=== PATIENT | female | born 1965 | race Caucasian/White ===

== ENCOUNTER 2021-01-15 09:56 | Outpatient (RCR) | payer BC, SELFPAY ==
--- NOTE | 2021-01-15 11:02 | PTOPEVAL ---
Thank you for referring Keena Fournier to [facility].? The patient is scheduled to be seen for therapy? __2__x/week for 12 visits. Please review, sign, date and return this plan of care LANCE. I agree with and certify that the following plan of care is medically necessary. Referring Physician Date Admitting Provider: Attending Provider: Malik Slade Referring Provider: *PT Outpatient Evaluation Start: 01/15/21 10:10 Freq: Status: Active Protocol: Document 01/15/21 10:11 SKINNY (Rec: 01/15/21 11:01 [email or web address]) Therapy Assessment Status Assessment Status Assessment Status Evaluation Evaluation Information Problem Diagnosis right shoulder biceps tenodesis, debridement Onset 01/12/21 Subjective Information Pt. reports she underwent Query Text:As Reported By Patient/ shoulder surgery on 01/12/21. Family She states that pain has been severe since [facility]. She reports difficulty sleeping at night due to pain. She reports that her goal for therapy is to regain normal shoulder moblity. Prior Level of Function Activity Level (Last 3 Months) Occupation no working Hand Dominance Right Activity of Daily Living Ability Independent Indoor/Home Mobility Independent Community Mobility Independent Stairs Ability Independent Functional Cognition (Planning, Shopping Independent , Taking Medications) Cooking Yes Cleaning Yes Laundry Yes Shopping Yes Driving Yes Pain Assessment Pain Scale Pain Scale Used Numeric (1 - 10) Self Report Pain Assessment Right Shoulder(s) Reported Pain Level 10 Pain Description Aching Pain Score Pain Score 10: Self Report Interventions Used Interventions Used By Clinicians Electrical Stimulation, Exercise,Ice Upper Extremity Range of Motion General Upper Extremity Range of Motion Gross Upper Extremity Range of Motion -PROM right shoulder flexion Comments 90 degrees -PROM right shoulder abduction 45 degrees -PROM right elbow 0-135 degrees Palpation Assessment Palpation Palpation Pt. surgical sight appears normal with no indication of inf
--- NOTE | 2021-02-20 17:08 | PCPTNOTE ---
Mrs. Fournier is currently 5-6 weeks post op biceps tenodesis and debridement. She currently presents with 152 degrees of active shoulder flexion, 85 degrees of active shoulder ER and 75 degrees of active shoulder IR on the right. Passively pt. achieves 165 degrees of flexion, 90 degrees ER and 80 degrees of IR at the right shoulder. Strength remains at 3+/5 at this time. Pt. has progressed well in regards to strength and ROM, however continues to be limited due to pain reports. Her current program has focused on AAROM, PROM, AROM and variable isometric techniques. Pt. resistance has not been progressed in recent visits due to continued subjective reports of pain. We will continue to advance pt. per protcol. Thank you for the referral of this pt. and please contact me if there are any questions regarding the pt. rehab. Ayad Smith, MPT
--- NOTE | 2021-02-28 06:48 | PTOPEVAL ---
Thank you for referring Keena Fournier to [facility].? The patient is scheduled to be seen for therapy? __2__x/week for 8 visits. Please review, sign, date and return this plan of care LANCE. I agree with and certify that the following plan of care is medically necessary. Referring Physician Date Admitting Provider: Attending Provider: Malik Slade Referring Provider: *PT Outpatient Evaluation Start: 01/15/21 10:10 Freq: Status: Active Protocol: Document 02/23/21 13:30 SKINNY (Rec: 02/28/21 06:47 [email or web address]) Therapy Assessment Status Assessment Status Assessment Status Progress Evaluation Information Problem Diagnosis right shoulder biceps tenodesis, debridment Onset 01/12/21 Subjective Information Pt. reports that her arm is Query Text:As Reported By Patient/ moving better. She states Family that pain remains intense. She has avoided any strenuous activity with the right arm. She states that she still notes most difficulty with activities requiring her to reach overhead. She states that she would like to continue with therapy in order to improve her strength. Pain Assessment Timing of Pain Assessment Timing of Pain Assessment Pre-Treatment Pain Scale Pain Scale Used Numeric (1 - 10) Self Report Pain Assessment Right Shoulder(s) Reported Pain Level 7 Pain Description Aching Lowest Pain Intensity 5 Greatest Pain Intensity 9 Pain Score Pain Score 7: Self Report Interventions Used Interventions Used By Clinicians Electrical Stimulation, Exercise,Heat Upper Extremity Range of Motion General Upper Extremity Range of Motion Gross Upper Extremity Range of Motion -right shoulder flexion AROM Comments 155 degrees -right shoulder ER AROM 85 degrees -right shoulder IR AROM 74 degrees Pt. is painful and guarded with active shoulder movement against gravity. Upper Extremity Muscle Strength Testing General Upper Extremity Strength Gross Upper Extremity Strength Comments -right shoulder flexion 3+/5 -right shoulder ER 3+/5 -right shoulder IR 3+/5 -right shoulder abduction 3+/5
--- NOTE | 2021-03-09 16:41 | PCPTNOTE ---
On 03/09/21, the student, [Yuliya Moses, SPT], provided care and completed [employer] documentation on this patient. I have reviewed the student's documentation and agree with the findings.
--- NOTE | 2021-03-21 14:12 | PCPTNOTE ---
On 03/21/21, the student, [Yuliya Moses, SPT], provided care and completed [employer] documentation on this patient. I have reviewed the student's documentation and agree with the findings.
--- NOTE | 2021-04-09 13:44 | PTOPEVAL ---
Thank you for referring Keena Fournier to [facility].? The patient is scheduled to be seen for therapy? __2__x/week for 8 visits. Please review, sign, date and return this plan of care LANCE. I agree with and certify that the following plan of care is medically necessary. Referring Physician Date Admitting Provider: Attending Provider: Malik Slade Referring Provider: *PT Outpatient Evaluation Start: 01/15/21 10:10 Freq: Status: Active Protocol: Document 04/09/21 13:08 SKINNY (Rec: 04/09/21 13:43 [email or web address]) Therapy Assessment Status Assessment Status Assessment Status Re-evaluation Evaluation Information Problem Diagnosis right shoulder biceps tenodesis, debridment Onset 01/12/21 Subjective Information Pt. reports that she still Query Text:As Reported By Patient/ experiences pain. She states Family that she has had 3 injections since we last seen her, and states that relief has been minimal. She reports that she still has pain with most activities and notes lots of grinding and popping into the right shoulder. She reports that she even has increased pain with using her ipad to touch the screen. She reports that she is woke from sleep on occassion. She reports that she discussed shoulder replacement, but doctor felt it would not be affective due to no relief with the injection. she reports that her goal for therapy is to decrease her pain with regular activities. Pain Assessment Timing of Pain Assessment Timing of Pain Assessment Pre-Treatment Pain Scale Pain Scale Used Numeric (1 - 10) Self Report Pain Assessment Right Shoulder(s) Reported Pain Level 3 Lowest Pain Intensity 3 Greatest Pain Intensity 8 Pain Aggravating Factors ADL's,Exercise/Activity, Lifting Pain Score Pain Score 3: Self Report Interventions Used Interventions Used By Clinicians Exercise,Manual Therapy Techniques Upper Extremity Range of Motion General Upper Extremity Range of Motion Gross Upper Extremity Range of Motion -right shoulder flexion AROM Comments
== END 2021-04-23 16:18 | disposition still patient (30) ==
LOC: CHSPT 09:56
PROVIDERS: PCP Internal Medicine
DX: Z98.890 Other specified postprocedural states (principal)
CPT/HCPCS: 97014; 97110; 97140; 97161; G0283

== ENCOUNTER 2021-04-27 15:01 | Outpatient (RCR) | payer BC, SELFPAY | END 2021-04-27 18:00 | disposition home or self-care (01) | LOC: CHSPT 15:01 | PROVIDERS: PCP Internal Medicine | DX: Z98.890 Other specified postprocedural states (principal) | CPT/HCPCS: 97014; 97110; G0283 ==

== ENCOUNTER 2021-09-17 13:55 | Outpatient (RCR) | payer BC, SELFPAY ==
--- NOTE | 2021-09-17 15:19 | PTOPEVAL ---
Thank you for referring Keena Fournier to [facility].? The patient is scheduled to be seen for therapy? __2__x/week for 12 visits. Please review, sign, date and return this plan of care LANCE. I agree with and certify that the following plan of care is medically necessary. Referring Physician Date Admitting Provider: Attending Provider: Raoul Ledesma, PA Referring Provider: *PT Outpatient Evaluation Start: 09/17/21 14:01 Freq: Status: Active Protocol: Document 09/17/21 14:01 SKINNY (Rec: 09/17/21 15:18 [email or web address]) Therapy Assessment Status Assessment Status Assessment Status Evaluation Evaluation Information Problem Diagnosis right reverse total shoulder replacement Onset 08/01/21 Subjective Information Pt. reports that she underwent Query Text:As Reported By Patient/ surgery on 08/01/21. She Family reports she has been using a sling with the exception of at night. She reports she was told to continue her sling for 2 more weeks. she reports that pain is currently 8/10 at rest. She reports her pain levels remain consistents. She reports that she is taking pain medication about every 8 hours. she states that only exercise she has done is moving the hand, wrist and elbow. She reports that her goal is to use her right arm to fix her hair and reach overhead. Pain Assessment Timing of Pain Assessment Timing of Pain Assessment Pre-Treatment Pain Scale Pain Scale Used Numeric (1 - 10) Self Report Pain Assessment Right Shoulder(s) Reported Pain Level 8 Pain Aggravating Factors Exercise/Activity Pain Score Pain Score 8: Self Report Interventions Used Interventions Used By Clinicians Activity or ADL's,Exercise, Heat Upper Extremity Range of Motion Scapular/ Shoulder Range of Motion Right Shoulder Flexion - Passive 121 Shoulder Medial Rotation - Passive 20 Shoulder Lateral Rotation - Passive 62 Upper Extremity Muscle Strength Testing Scapular/Shoulder Right Scapular Retraction - Rhomboid 3- Fair - Scapular Retraction - Middle Trapezius 3- Fair - Shoulder Flexion Strength 3- Fair - Shoulder Abduction Strength 3- Fair - Shoulder Medial Rotation Strength 3 Fair Shoulder Lateral Rotation Str
--- NOTE | 2021-10-22 15:14 | PTOPEVAL ---
Thank you for referring Keena Fournier to [facility] [place].? The patient is scheduled to be seen for therapy? __2__x/week for 6 visits. Please review, sign, date and return this plan of care LANCE. I agree with and certify that the following plan of care is medically necessary. Referring Physician Date Admitting Provider: Attending Provider: Raoul Ledesma, PA Referring Provider: *PT Outpatient Evaluation Start: 09/17/21 14:01 Freq: Status: Active Protocol: Document 10/22/21 14:31 SKINNY (Rec: 10/22/21 15:12 [email or web address]) Therapy Assessment Status Assessment Status Assessment Status Progress Evaluation Information Problem Subjective Information Pt. reports that reaching down Query Text:As Reported By Patient/ to shave her legs is still Family difficult, as well as reaching overhead. She reports that things are getting better in regards to mobility, but pain is still present. She reports still being discouraged due to constant pain. Pain Assessment Timing of Pain Assessment Timing of Pain Assessment Pre-Treatment Pain Scale Pain Scale Used Numeric (1 - 10) Self Report Pain Assessment Right Shoulder(s) Reported Pain Level 5 Pain Score Pain Score 5: Self Report Interventions Used Interventions Used By Clinicians Activity or ADL's,Electrical Stimulation,Exercise,Heat Upper Extremity Range of Motion General Upper Extremity Range of Motion Gross Upper Extremity Range of Motion - Comments Scapular/ Shoulder Range of Motion Right Shoulder Flexion - Active 126 Shoulder Flexion - Passive 140 Shoulder Medial Rotation - Active Unable to accurately test IR Query Text:Reach Behind the Back passive movement due to pt. demonstrating muscular resistance despite cuing. She reaches the area of the right PSIS with the right u.e. Shoulder Lateral Rotation - Passive 85 Shoulder Lateral Rotation - Active Pt. reaches the area of the CT Query Text:Reach Behind the Head junction with the right u.e. Upper Extremity Muscle Strength Testing General Upper Extremity Strength Gross Upper Extremity Strength Comments -right shoulder flexion 3+/5 -right shoulder ER 3+/5 -right shoulder IR 3+/5 Pt. is able to hold the arm at 130 degrees of shoulder flexion against gravity when assisted into position. Note
== END 2021-11-22 18:00 | disposition home or self-care (01) ==
LOC: CHSPT 13:55
PROVIDERS: Visit Provider Physician Assistant
DX: Z47.1 Aftercare following joint replacement surgery (principal); Z96.611 Presence of right artificial shoulder joint
CPT/HCPCS: 97014; 97110; 97140; 97161; G0283

== ENCOUNTER 2023-10-03 15:44 | Outpatient (CLI) | payer BC, SELFPAY ==
--- NOTE | ~2023-10-03 | XR_ITS ---
EXAMINATION: XR shoulder LT min 2V DATE: 10/03/2023 16:01 INDICATION: One and a half weeks of anterior and lateral left shoulder pain TECHNIQUE: AP internally and externally rotated, AP oblique externally rotated and transscapular Y vi ews of the left shoulder were obtained. COMPARISON: None FINDINGS: Normal alignment. No fracture. Glenohumeral joint is normal. Moderate osteoarthritis at the left acr omioclavicular joint with small inferiorly directed osteophytes. Small lucency with thin sclerotic ma rgins along the floor of the cephalad aspect of the intertubercular groove which could be either dege nerative in etiology or potentially anchor site for a bicipital tenodesis. Soft tissues are unremarka ble. There are few calcified perihilar nodules consistent with old granulomatous disease. Visualized portion of the lungs are otherwise clear. IMPRESSION: Moderate left acromioclavicular osteoarthritis. Reviewed, dictated and finalized at location A. [employer]
== END 2023-10-03 15:45 | disposition home or self-care (01) ==
PROVIDERS: PCP Internal Medicine; Visit Provider Internal Medicine
DX: M25.512 Pain in left shoulder (principal); M19.012 Primary osteoarthritis, left shoulder
CPT/HCPCS: 73030

== ENCOUNTER 2025-09-09 11:24 | Outpatient (CLI) | payer BC, SELFPAY ==
--- NOTE | ~2025-09-09 | XR_ITS ---
EXAMINATION: XR lumbar spine 2-3V, XR hip RT min 2V DATE: 09/09/2025 11:51 INDICATION: Chronic worsening right hip pain radiating to the knee TECHNIQUE: 1. Anteroposterior and lateral views of the lumbar spine, and cone-down lateral view of the lumbosacral junction were obtained. 2. AP and frog-leg lateral views of the right hip were obtained. COMPARISON: Lumbar spine radiographs dated 08/24/2007 FINDINGS: Lumbar spine: 9 degrees lumbar levocurvature. Sagittal alignment is normal. L4-L5 and L5-S1 anterior spinal fusion procedures with anterior plate and screw fixations. Vertebral body heights are normal. Mild right-sided disc height loss at L1-L2 and L2-L3 diffuse mild disc height loss at T12-L1. Moderate lower lumbar facet osteoarthritis. Mild osteoarthritis at the bilateral sacroiliac joints. Chronic sclerotic bone island at the right ilium. Right hip: Normal alignment. No fracture or suspected osteonecrosis. Minimal right hip osteoarthritis with relatively preserved joint space but tiny marginal osteophytes about the femoral head. Soft tissues are unremarkable. IMPRESSION: 1. 9 degrees lumbar levocurvature with mild spondylosis. 2. Minimal right hip osteoarthritis. Reviewed, dictated and finalized at location A. TROLLER IMPRESSION: 1. 9 degrees lumbar levocurvature with mild spondylosis. 2. Minimal right hip osteoarthritis.
--- OUTSIDE RECORDS SUMMARY | 2025-09-09 12:04 | XMS_ITS | Clinical Summary ---
Author Organization [facility] al Address [address] [place] [address] Care Team Providers [employer] Name Role Phone Mikhail Meza MD Primary Care Provider [phone] Raoul Ledesma Unavailable [phone] Allergies Active Allergy Reactions Criticality Noted Date Comments Codeine Fever,Rash Medium 01/03/2020 Reaction: Fever, Medications calcium carbonate (CALCIUM 500) 1,250 MG (500 mg of elemental calcium) tablet 0 0 6 Active docusate sodium (COLACE) 100 mg capsule TAKE 1 CAPSULE BY MOUTH TWICE DAILY NEEDED 0 Active montelukast (SINGULAIR) 10 mg tablet Take 1 tablet (10 mg total) by mouth daily 1 Active fluticasone propion-salmete roL (ADVAIR DISKUS) 250-50 mcg/dose diskus inhaler Inhale 1 puff 2 (two) times a day 5 Active oxyCODONE (ROXICODONE) 5 mg immediate release tabletIndicatio ns:Pain Take 1 tablet (5 mg total) by mouth every 4 (four) hours as needed for pain 20 tablet 5 Active oxyCODONE (ROXICODONE) 5 mg immediate release tabletIndicatio ns:Pain Take 1 tablet (5 mg total) by mouth every 4 (four) hours as needed for pain 10 tablet 5 Active naloxone (NARCAN) 4 mg/actuation spray,non-aeros ol Administer 1 spray into affected nostril(s) as needed for opioid reversal or respiratory depression Call 911. Administer a single spray in one nostril. Repeat every 3 minutes as needed if no or minimal response. 1 each 5 Active traMADoL (ULTRAM) 50 mg tabletIndicatio ns:Left wrist pain Take 1 tablet every 4-6 hours as needed for pain. 20 tablet 5 Active Active Problems Problem Noted Date Diagnosed Date Primary osteoarthritis of fi rst carpometacarpal joint of left hand 06/13/2025 Rotator cuff arthropathy of right shoulder 06/28 Asthma 05/23/2020 Headache 05/23/2020 History of surgery on left wrist 07/29/2019 Pain of upper extremity 09/29/2017 Bone neoplasm 02/13/2017 Mass of breast 09/23/2016 Overview (02/06/2017): Breast lump Endometrial polyp 07/11/2016 Overview (05/23/2020): 12/2014- removed with hysteroscopy D&C Ovarian cyst 07/11/2016 Overview (05/23/2020): Last U/S check was in 10/2014, 0.9cm anechoic cyst Low back pain 02/21/2010 Encounters Date Type Department Care Team Description 09/06/2025 10:00 AM 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 [facility] [address] [place] [phone] Nesha Ulloa, PT Primary osteoarthritis of first carpometacarpal joint of left hand (Primary Dx) 08/25/2025 11:15 AM CDT [facility] [address] [place] [phone] Nesha Ulloa, PT Primary osteoarthritis of first carpometacarpal joint of left hand (Primary Dx) 08/25/2025 10:00 AM CDT Office Visit [facility] Hand Surgery [address] [place] [phone] Patria Venegas MD Osteoarthritis of carpometacarpal (CMC) joint of left thumb, unspecified osteoarthritis type (Primary Dx) 08/12/2025 Orders Only [facility] Hand Surgery [address] [place] [phone] Patria Venegas MD Left wrist pain 08/09/2025 8:45 AM CDT Therapy [facility] Should[facility] [address] [place] [phone] Nesha Ulloa, PT Primary osteoarthritis of first carpometacarpal joint of left hand (Primary Dx) 08/04/2025 Telephone [facility] Hand Surgery [address] [place] [phone] Patria Venegas MD 07/28/2025 10:45 AM CDT Therapy [facility] [address] [place] [phone] Nesha Ulloa, PT Primary osteoarthritis of first carpometacarpal joint of left hand (Primary Dx) 07/28/2025 10:15 AM CDT Office Visit [facility] Hand Surgery [address] [place] [phone] Patria Venegas MD Left wrist pain (Primary Dx) 07/28/2025 Plan of Care Documentation [facility] [address] [place] [phone] 07/21/2025 Orders Only [facility] Hand Surgery [address] [place] [phone] Patria Venegas MD Primary osteoarthritis of first carpometacarpal joint of left hand 07/21/2025 Telephone [facility] Surgery [address] [place] [phone] Patria Venegas MD refill 07/15/2025 Orders Only [facility] [address] [place] [phone] Ginny Patel PA 07/15/2025 Telephone [facility] [address] [place] [phone] Patria Venegas MD 07/14/2025 Telephone [facility] [address] [place] [phone] Patria Venegas MD 07/13/2025 8:20 AM CDT - 07/13/2025 10:40 AM CDT Surgery [facility] OR [address] [place] [phone] Patria Venegas MD LEFT TRAPEZIECTOMY WITH LIGAMENT RECONSTRUCTION AND TENDON INTERPOSITION 07/13/2025 8:17 AM CDT Anesthesia Event [facility] OR [address] [place] [phone] Turner Wilson MD Taylor-White, Carlotta A., NP 07/13/2025 7:30 AM CDT Ancillary Procedure [facility] OR [address] [place] [phone] 07/13/2025 5:46 AM CDT - 07/13/2025 11:37 AM CDT Hospital Encounter [facility] OR [address] [place] [phone] Patria Venegas MD Primary osteoarthritis of first carpometacarpal joint of left hand (Primary Dx) Discharge Disposition: Discharge to home or self care 06/13/2025 10:45 AM CDT Office Visit [facility] Medical [facility] Hand Surgery [address] [place] [address] [address] [place] [phone] Patria Venegas MD Left wrist pain (Primary Dx) 06/13/2025 10:26 AM CDT - 06/13/2025 11:59 PM CDT Hospital Encounter [facility] MOB 1 DIAG IMG [address] [place] [phone] Left wrist pain Discharge Disposition: Discharge to home or self care 06/13/2025 Orders Only [facility] Hand Surgery [address] [place] [phone] Patria Venegas MD Primary osteoarthritis of first carpometacarpal joint of left hand (Primary Dx) from Last 3 Months Surgical History Surgery Date Site/Laterality Comments KNEE SURGERY 11/03/2009 - 11/02/2010 Right BACK SURGERY BUNIONECTOMY Right Nov 2024 OVARIAN CYST SURGERY TUBAL LIGATION TONSILLECTOMY CYST REMOVAL Right tumor/benign SHOULDER ARTHROSCOPY W/ ACRO MIAL REPAIR Right Medical History Medical History Date Comments Asthma Asthma Hypercholesteremia Obesity Osteoarthritis of carpometac arpal (CMC) joint of left thumb, unspecified osteoarthritis type 07/07/2025 Wears glasses Dental crowns present crowns 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 Family History Medical History Relation Name Comments Brain cancer Brother 2 Cancer, brain; Cause of : Cancer, brain Arthritis Father Family history of arthritis - (Added by TW Conv) Bleeding Disorder Father Bleeding d isorder - (Added by TW Conv) Diabetes Father Family history of diabetes mellitus - (Added by TW Conv) Lung disease Father Family history of lung disease - (Added by TW Conv) Arthritis Mother Family history of arthritis - (Added by TW Conv) Stroke Mother Family history of cerebrovascular accident (CVA) - (Added by TW Conv) Colon cancer Mother's Brother 2 Cancer, c olon; Cause of : Cancer, colon Bone cancer Mother's Sister Cancer, bone ; Other Other Family history of decent ; Lung cancer Paternal Grandfather Cancer, lung; Colon cancer Paternal Grandmother Cancer, colon; Liver cancer Paternal Grandmother Cancer, liver; Relation Name Status Comments Brother 1 (Age 46) Brother 2 Father Mother Mother's Brother 1 (Age 70) Mother's Brother 2 Mother's Sister Other Paternal Grandfather Paternal Grandmother Social History Tobacco Use Types Packs/Day Years Used Date Smoking Tobacco: Never Smokeless Tobacco: Never Alcohol Use Standard Drinks/Week Comments Never 0 (1 standard drink = 0.6 oz pur e alcohol) AUDIT-C Answer Date Recorded Q1: How often do you have a drink containing alcohol? Never 07/07/2025 Q2: How many drinks containi ng alcohol do you have on a typical day when you are drinking? Patient does not drink Q3: How often do you have si x or more drinks on one occasion? Never 07/07/2025 Personal Safety Answer Date Recorded Have you ever been in or are you currently in a harmful physical or emotional relationship or is someone making you feel afraid or unsafe? 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 Gender Identity Female 05/17/2020 9:54 AM CDT Sexual Orientation Straight 05/17/2020 9: 54 AM CDT Last Filed Vital Signs Vital Sign Reading Time Taken Comments Blood Pressure 132/76 07/13/2025 11:00 AM CDT Pulse 71 07/13/2025 11:00 AM CDT Temperature 36.2 C (97.2 F) 07/13/2025 10:30 AM CDT Respiratory Rate 18 07/13/2025 11:0 0 AM CDT Oxygen Saturation 100% 07/13/2025 11: 00 AM CDT Inhaled Oxygen Concentration - - Weight 104.4 kg (230 lb 3.2 oz) 07/13/2025 6:05 AM CDT Height 170.2 cm (5' 7) 07/13/2025 6:05 AM CDT Body Mass Index 36.05 07/13/2025 6:05 AM CDT Plan of Treatment Health Maintenance Due Date Last Done Comments Cervical Cancer Screening 1964 Colon Cancer Screening-Colonoscopy 1964 Depression Screening 1964 Hepatitis C Screening 1964 DTaP/Tdap/Td Vaccine (1 - Tdap) 1975 Hepatitis B Screening 1982 Regular Well Visit/Exam 18-64 1982 Pneumococcal vaccine <65 (1 of 2 - PCV) 1983 Breast Cancer Screening-Mammogram 12/06/2020 020, 12/06/2019 Covid-19 Vaccine (2 - season) 2025 Influenza Vaccine (#1) 2025 Zoster Vaccine Completed 07/30/2019, 06/03/2019 Medical Devices Implanted Type Area Heat Regulator Device Identifier Shelf Expiration Date Model / Serial / Lot Exactech [id number] Small Reverse Posterior Augment Shoulder Right 8d Plate - [id number] - [id number] Implanted:Qty: 1 on 08/01/2021 by Scar Shore MD at [facility] Right: Shoulder Exactech 06/05/2031 320-35-04 / [id number] / Exactech 320-20-42 Equinoxe 4.5mm 42mm Kit Compression Lock Cap Reverse Shoulder - [id number] - [id number] Implanted:Qty: 1 on 08/01/2021 by Scar Shore MD at [facility] Right: Shoulder Exactech 02/11/2026 320-20-42 / [id number] / Exactech 320-20-38 Equinoxe 4.5mm 38mm Kit Compression Lock Cap Reverse Shoulder - [id number] - [id number] Implanted:Qty: 1 on 08/01/2021 by Scar Shore MD at [facility] Right: Shoulder Exactech 01/18/2025 320-20-38 / [id number] / Exactech 320-15-05 Equinoxe Lock Reverse Shoulder Glenosphere Screw Bone - [id number] - [id number] Implanted:Qty: 1 on 08/01/2021 by Scar Shore MD at [facility] Right: Shoulder Exactech 01/22/2026 320-15-05 / [id number] / Exactech 320-31-36 Component 36mm Glenoid Glenosphere Reverse Shoulder - [id number] - [id number] Implanted:Qty: 1 on 08/01/2021 by Scar Shore MD at [facility] Right: Shoulder Exactech 03/07/2037 320-31-36 / [id number] / Exactech 300-30-06 Equinoxe Od6 Mm L70 Mm Shoulder Stem Humeral Sterile - [id number] - [id number] Implanted:Qty: 1 on 08/01/2021 by Scar Shore MD at [facility] Right: Shoulder Exactech 01/31/2031 300-30-06 / [id number] / Exactech 320-10-00 Equinoxe Reverse Shoulder +0mm Tray Humeral Adapter - [id number] - [id number] Implanted:Qty: 1 on 08/01/2021 by Scar Shore MD at [facility] Right: Shoulder Exactech 06/05/2031 320-10-00 / [id number] / Exactech 320-20-00 Reverse Torque Define Shoulder Kit Screw - [id number] - [id number] Implanted:Qty: 1 on 08/01/2021 by Scar Shore MD at [facility] Right: Shoulder Exactech 06/05/2026 320-20-00 / [id number] / Exactech 320-36-00 Equinoxe 36mm Shoulder 0mm Offset Liner Humeral Sterile - [id number] - [id number] Implanted:Qty: 1 on 08/01/2021 by Scar Shore MD at [facility] Right: Shoulder Exactech 06/04/2026 320-36-00 / [id number] / Procedures Procedure Name Priority Date/Time Associated Diagnosis Comments FL FLUOROSCOPY < 1 HOUR IP Routine 07/13/2025 8:50 AM CDT MA AN PROCEDURE PLACEHOLDER Routine 07/13/2025 8:35 AM CDT MA AN ELECTIVE SUPRAGLOTTIC AIRWAY Routine 07/13/2025 8:35 AM CDT ARTHROPLASTY CARPOMETACARPAL INTERPOSITIONAL WITH RECONSTRUCTION LIGAMENT - THUMB 07/13/2025 8:17 AM CDT Primary osteoarthritis of first carpometacarpal joint of left hand Case Notes GENERAL AND BLOCK 90 MINSLEFT TRAPEZIECTOMY WITH LIGAMENT RECONSTRUCT. AND TENDON INTERPOSITION MA AN PROCEDURE PLACEHOLDER Routine 07/13/2025 7:52 AM CDT POCUS INJ BRACHIAL PLEXUS IP Routine 07/13/2025 7:27 AM CDT POCT CREATININE FOR CONTRAST EVALUATION Routine 07/13/2025 6:27 AM CDT POC BLOOD GAS AND CHEMISTRIES, VENOUS Routine 07/13/2025 6:20 AM CDT XR WRIST LEFT 3 OR MORE VIEWS Schedule Routine, Read Routine (OP Routine) 06/13/2025 11:02 AM CDT Left wrist pain XR FINGER THUMB LEFT Schedule Routine, Read Routine (OP Routine) 06/13/2025 11:02 AM CDT Left wrist pain from Last 3 Months Results * FL Fluoroscopy < 1 Hour (07/13/2025 8:50 AM CDT) Narrative [email or web address] - 07/13/2025 1:01 PM CDT The images from this study are not interpreted by Radiology. Please refer to the physician's procedure / OR operative note. us Patria Venegas MD IMG FLUOROSCOPY PROCEDURE S Final Result Performing Organization Address City/State/[facility] Co de Phone Number [email or web address] * MA AN ELECTIVE SUPRAGLOTTIC AIRWAY, MA AN PROCEDURE PLACEHOLDER (07/13/2025 8:35 AM CDT) Narrative Mari Mcfarlane CRNA - 07/13/2025 8:35 AM CDT Mari Mcfarlane CRNA 07/13/2025 8:37 AM Airway Patient location: OR Urgency: elective Date/time: 07/13/2025 8:22 AM Indications for airway management: anesthesia Difficult airway: no Staff: Supervising provider: Turner Wilson MD Placed by: CLINICAL ASSESSMENT MANAGER: Mari Mcfarlane CRNA Emergent airway documentation: Risks and benefits discussed: yes Consent obtained: yes Consent given by: patient Airway prep: Preoxygenated: yes Patient position: sniffing Mask difficulty assessment: 0 - not attempted Spontaneous ventilation during airway: absent Sedation level during airway: GA Final airway details: Final airway type: supraglottic airway Final supraglottic airway: classic SGA size: 4 Number of attempts: 1 Additional comments: Placed by LATOYA Nelson. Atraumatic, dentition and soft tissue per preop us Turner Wilson MD ANESTHESIA ORDERABLE S Final Result * MA AN PROCEDURE PLACEHOLDER (07/13/2025 7:52 AM CDT) Narrative Turner Wilson MD - 07/13/2025 7:52 AM CDT Turner Wilson MD 07/13/2025 7:52 AM Peripheral Block Patient location during procedure: pre-op holding Start time: 07/13/2025 7:41 AM End time: 07/13/2025 7:43 AM Reason for block: post-op pain management per surgeon request Ultrasound image in chart or stored: yes Block type: single shot Laterality: left Block type: brachial - supraclavicular Staff: Placed by: Anesthesiologist: Turner Wilson MD Procedure prep: Preprocedure checklist: patient identified, procedure contraindications assessed, site marked, procedure consent, surgical consent, IV checked, risks, benefits and alternatives discussed, monitors and equipment checked and timeout performed Patient position: head of bed elevated and supine Procedure performed while patient: sedate with meaningful contact Monitoring: ECG, oximetry and blood pressure Supplemental O2: nasal cannula Prep solution: chlorhexidine/alcohol PPE: provider hat/mask, sterile gloves and sterile probe cover and gel Peripheral nerve block: Technique: ultrasound guided Needle type: insulated, short-bevel and echogenic Needle gauge: 22 G Needle length: 80 mm Injection assessment: injection made incrementally with constant monitoring, local visualized surrounding nerve on ultrasound, negative aspiration for heme, see flowsheet for medication details, no paresthesias noted and normal resistance to injection Assessment: Block success: full evaluation pending Events: patient tolerated procedure well with no complications us Turner Wilson MD ANESTHESIA ORDERABLE S Final Result * POCUS INJ BRACHIAL PLEXUS (07/13/2025 7:27 AM CDT) Narrative [email or web address]_POCUS_[facility] - 07/13/2025 7:27 AM CDT This procedure was performed and interpreted by the provider. Please refer to the provider's procedure/OR operative note for results. us Patria Venegas MD POCUS ORDERABLES Final Re sult RAD_PACS_POCUS_[facility] * POCT creatinine for contrast evaluation (07/13/2025 6:27 AM CDT) Creatinine POC 0.80 0.60 - 1.10 mg/dL Blood 07/13/2025 6:27 AM CDT 07/13/2025 6:27 AM CDT Patria Venegas MD POINT OF CARE TEST ORDERA BLES Final Result [facility] [address] [place] [address] * POC Blood Gas and Chemistries, Venous - (07/13/2025 6:20 AM CDT) pH,el POC 7.38 7.32 - 7.43 pCO2, el POC 43 40 - 50 mmHg [facility] pO2,el POC 32 mmHg [facility] Comment: Interpretive Data No reference range established. Current interpretive data was last revised 2020. HCO3, el (Calc) POC 26 20 - 30 mmol/L [facility] Base excess, el POC 0 mmol/L [facility] Comment: Interpretive Data No reference range established. Current interpretive data was last revised 2020. Hemoglobin, el POC 13.9 11.9 - 15.5 g/dL [facility] Hematocrit, el POC 41.0 35.6 - 45.5 % [facility] Sodium, el POC 140 135 - 145 mmol/L [facility] Potassium, el POC 3.6 3.3 - 4.9 mmol/L [facility] Comment: Interpretive Data This method is not able to assess for hemolysis, which may falsely increase potassium concentrations. If further testing is needed to evaluate this result, consider in-laboratory plasma potassium. Current Interpretive Data was last revised on 2022. Glucose, el POC 94 70 - 199 mg/dL [facility] Ionized Calcium, el POC 5.00 4.50 - 5.10 mg/dL [facility] Blood 07/13/2025 6:20 AM CDT 07/13/2025 6:20 AM CDT us Patria Venegas MD LAB POCT ORDERABLES - DEV ICE Final Result [facility] [address] Department [place] [address] * XR Finger Thumb Left Minimum 2 Views (06/13/2025 11:02 AM CDT) Anatomical Region Laterality Modality Upper Extremities, Hand, Fingers Left Computed Radiography 06/14/2025 6:02 AM CDT Narrative 06/14/2025 6:55 AM CDT EXAM DESCRIPTION: 1. XR FINGER THUMB LEFT MINIMUM 2 VIEWS; 2. XR WRIST LEFT 3 OR MORE VIEWS REASON FOR STUDY: pain Intermittent shooting pain from base of thumb into wrist, hx of wrist surgery 2019 FINDINGS: Three views left thumb and three views left wrist submitted without comparison. No acute fracture. Moderate basal thumb joint osteoarthritis is present. Mild 1st metacarpophalangeal joint osteoarthritis. IMPRESSION: 1. Moderate left basal thumb joint osteoarthritis. THIS IS AN ELECTRONICALLY VERIFIED FINAL REPORT 06/14/2025 6:55 AM - Electronically signed by Ayad Nevarez M.D. MF: ROSAMARIA Report ID: [id number] Reading Location: [place] [address] Procedure Note Ayad Nevarez MD - 06/14/2025 EXAM DESCRIPTION: 1. XR FINGER THUMB LEFT MINIMUM 2 VIEWS; 2. XR WRIST LEFT 3 OR MORE VIEWS REASON FOR STUDY: pain Intermittent shooting pain from base of thumb into wrist, hx of wristsurgery 2019 FINDINGS: Three views left thumb and three views left wrist submittedwithout comparison. No acute fracture. Moderate basal thumb joint osteoarthritis is present. Mild 1st metacarpophalangeal joint osteoarthritis. IMPRESSION: 1. Moderate left basal thumb joint osteoarthritis. THIS IS AN ELECTRONICALLY VERIFIED FINAL REPORT 06/14/2025 6:55 AM - Electronically signed by Ayad Nevarez M.D. MF: ROSAMARIA Report ID: [id number] Reading Location: [id number] us Patria Venegas MD IMG XR PROCEDURES Final R esult * XR Wrist Left 3 or More Views (06/13/2025 11:02 AM CDT) Anatomical Region Laterality Modality Upper Extremities, Wrist Left Compute d Radiography 06/14/2025 6:02 AM CDT Narrative 06/14/2025 6:55 AM CDT EXAM DESCRIPTION: 1. XR FINGER THUMB LEFT MINIMUM 2 VIEWS; 2. XR WRIST LEFT 3 OR MORE VIEWS REASON FOR STUDY: pain Intermittent shooting pain from base of thumb into wrist, hx of wrist surgery 2019 FINDINGS: Three views left thumb and three views left wrist submitted without comparison. No acute fracture. Moderate basal thumb joint osteoarthritis is present. Mild 1st metacarpophalangeal joint osteoarthritis. IMPRESSION: 1. Moderate left basal thumb joint osteoarthritis. THIS IS AN ELECTRONICALLY VERIFIED FINAL REPORT 06/14/2025 6:55 AM - Electronically signed by Ayad Nevarez M.D. MF: ROSAMARIA Report ID: [id number] Reading Location: [id number] Procedure Note Ayad Nevarez MD - 06/14/2025 EXAM DESCRIPTION: 1. XR FINGER THUMB LEFT MINIMUM 2 VIEWS; 2. XR WRIST LEFT 3 OR MORE VIEWS REASON FOR STUDY: pain Intermittent shooting pain from base of thumb into wrist, hx of wristsurgery 2019 FINDINGS: Three views left thumb and three views left wrist submittedwithout comparison. No acute fracture. Moderate basal thumb joint osteoarthritis is present. Mild 1st metacarpophalangeal joint osteoarthritis. IMPRESSION: 1. Moderate left basal thumb joint osteoarthritis. THIS IS AN ELECTRONICALLY VERIFIED FINAL REPORT 06/14/2025 6:55 AM - Electronically signed by Ayad BLANK: ROSAMARIA Report ID: [id number] Reading Location: [id number] us Patria Venegas MD IMG XR PROCEDURES Final R esult from Last 3 Months Insurance [place] [employer] [place] For more information, please contact: [phone] * Full Code (Latest Code Status on File) Date Activated Date Inactivated Comments 08/01/2021 1:42 PM 08/01/2021 8:25 PM Care Teams [employer] Relationship Specialty Start Date End Date Mikhail Meza MD PCP - General 12/11/16 Raoul Ledesma PA [address] [place] [address] Physician Is Support Analyst Orthopedic Surgery 08/01/21
--- OUTSIDE RECORDS SUMMARY | 2025-09-09 12:04 | XMS_ITS | Clinical Summary ---
Author Organization [facility] Address [address] [place] [id number] Phone Care Team Providers Care Suction Plate Roller Hand Name Role Phone Mikhail Meza MD Primary Care Provider [phone] Allergies Active Allergy Reactions Criticality Noted Date Comments Codeine Rash Low 02/21/2010 Medications montelukast (SINGULAIR) 10 mg tablet Take 10 mg by mouth daily at bedtime. Active fluticasone-shireen meterol (ADVAIR HFA) 115-21 mcg/actuation HFA Aerosol Inhaler Take 2 Puffs by inhalation every 12 hours. Active Phentermine 37.5 mg Capsule Take by mouth daily. Active docusate sodium (COLACE) 100 mg capsule Take 100 mg by mouth 2 times daily. Active cholecalciferol , Vitamin D3, (VITAMIN D3) 1,000 unit Capsule Take by mouth daily. Active calcium carbonate (CALCIUM CARBONATE) 648 mg (260 mg elemental) Tablet Take by mouth daily. Active conjugated estrogens (Premarin) 0.625 mg/gram vaginal creamIndication s:Vaginal atrophy Insert 0.5 Grams vaginally twice weekly. 30 Gram 5 0 Active Active Problems Problem Noted Date Diagnosed Date Headache Asthma Asthma Resolved Problems Problem Noted Date Diagnosed Date Resolved Date Strain of right shoulder 07/01/201812/2019 Family History Medical History Relation Name Comments Cancer Brother Brain tumor Healthy Daughter Diabetes Father Hypertension Father Colon Cancer Maternal Aunt Stroke Mother x2 Colon Cancer Paternal Grandmother Healthy Son 1 Healthy Son 2 Breast Cancer Neg Hx Ovarian Cancer Neg Hx Relation Name Status Comments Brother Daughter Alive Father (Age 78) MS/lung pr oblems with breathing Maternal Aunt Mother Alive Paternal Grandmother Son 1 Alive Son 2 Alive Social History Tobacco Use Types Packs/Day Years Used Date Smoking Tobacco: Never Smokeless Tobacco: Never Alcohol Use Standard Drinks/Week Comments No 0 (1 standard drink = 0.6 oz pur e alcohol) Feeling Safe Answer Date Recorded Within the last year, have y ou been afraid of your partner or ex-partner? No 11/04/2019 Within the last year, have y ou been humiliated or emotionally abused in other ways by your partner or ex-partner? No Within the last year, have y ou been kicked, hit, slapped, or otherwise physically hurt by your partner or ex-partner? No 11/04/2019 Within the last year, have y ou been raped or forced to have any kind of sexual activity by your partner or ex-partner? No 11/04/2019 Social Connections Answer Date Recorded Frequency of Communication with Friends and Fami ly Not on file 11/04/2019 Frequency of Social Gatherings with Friends and Family Not on file 11/04/2019 Attends Sabianism Services Not on file 11/04 Active Member of Clubs or Organizations Not on f ile 11/04/2019 Attends Club or Organization Meetings Not on flavia e 11/04/2019 Are you , , di vorced, , never , or living with a partner? 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 Not on file Not on file Last Filed Vital Signs Vital Sign Reading Time Taken Comments Blood Pressure 130/80 05/25/2020 11:05 AM CDT Pulse 65 07/29/2019 11:30 AM CDT Temperature 36.9 C (98.4 F) 07/29/2019 11:30 AM CDT Respiratory Rate 16 07/29/2019 10:32 AM CDT Oxygen Saturation 96% 07/29/2019 11:30 AM CDT Inhaled Oxygen Concentration - - Weight 87.5 kg (193 lb) 05/25/2020 11:05 AM CDT Height 170.2 cm (5' 7) 05/25/2020 11:05 AM CDT Body Mass Index 30.23 05/25/2020 11:05 AM CDT Plan of Treatment Health Maintenance Due Date Last Done Comments DTAP/TDAP/TD VACCINES (1 - Tdap) 1983 COLORECTAL SCREENING 2009 Colorectal Cancer Screening 2009 FIT-DNA Q 3 years 2009 FIT/FOBT Q 1 year 2009 Flex Sig/CT Colonography Q 5 years 2009 RSV VACCINE (60+ or ) (1 - Risk 50-74 years 1-dose series) 2014 BREAST CANCER SCREENING 12/06/2020 12/06/2019, 08/26 PAP SMEAR 11/04/2022 11/04/2019 CERVICAL CANCER SCREENING 11/04/2024 HPV/Cotest (21-29) 11/04/2024 11/04/2019 HPV/Cotest (30-65) 11/04/2024 11/04/2019 INFLUENZA VACCINE (#1) 2025 ZOSTER VACCINE Completed 07/30/2019, 06/03/2019 Procedures Procedure Name Priority Date/Time Associated Diagnosis Comments MAMMO 3D AILYN SCREEN BILAT W OR WO CAD Routine 12/06/2019 4:16 PM SUPERVISOR RIPRAP PLACING Visit for screening mammogram CERV/VAG CYTO AGE BASED SCREEN PAP Routine 11/04/2019 11:50 AM SUPERVISOR RIPRAP PLACING Well female exam with routine gynecological exam Routine cervical smear from Last 3 Months or Most Recently Relevant to Health Maintenance Results * MAMMO SCRN BILAT 3D AILYN W OR WO CAD (12/06/2019 4:16 PM SUPERVISOR RIPRAP PLACING) Anatomical Region Laterality Modality Breast Bilateral Mammography 12/06/2019 2:57 PM SUPERVISOR RIPRAP [employer]ACING Addenda Addendum by Nicole Stewart MD on 12/14/2019 8:12 AM SUPERVISOR RIPRAP PLACING ADDENDUM: The previous outside mammograms dated 11/09/2018, 07/22/2017 and 04/11/2011 were made available for comparison. The breast tissues are heterogeneously dense bilaterally which may lower the sensitivity of mammography. No new mass, malignant calcification or architectural distortion is seen. CAD was used. IMPRESSION: No evidence of malignancy. RECOMMENDATIONS: Bilateral annual screening mammogram. OVERALL FINAL ASSESSMENT: BI-RADS CATEGORY 1: Negative. Impressions 12/06/2019 3:41 PM SUPERVISOR RIPRAP PLACING IMPRESSION: This study is incomplete. Outside films are needed to assess stability of the parenchymal pattern. Once received, an addendum to this report will be made. OVERALL FINAL ASSESSMENT: BI-RADS CATEGORY 0 - Incomplete: Needs prior mammograms for comparison. DICTATION LOCATION: [facility] 12/06/2019 3:41 PM SUPERVISOR RIPRAP PLACING BILATERAL SCREENING DIGITAL MAMMOGRAM WITH 3D TOMOSYNTHESIS AND CAD DATE: 12/06/2019 2:56 PM HISTORY: Routine screening. TECHNIQUE: Full-field digital craniocaudal and mediolateral oblique projections of both breasts were obtained. Low-dose full-field digital breast tomosynthesis examination was performed with 2D and 3D acquisitions. Examination is read in conjunction with computer aided detection. COMPARISON: None currently available. The patient indicates her prior films were obtained in 2018 at [facility]. She has signed a release form for retrieval of these images. BREAST COMPOSITION: Heterogeneously dense, which limits the sensitivity of mammography. FINDINGS: This study is incomplete due to lack of prior films for comparison. Prior films have been requested and once received, an addendum will be made to this report. CAD is utilized. Procedure Note Nieves Mitchell DO / Nicole Stewart MD - 12/06/2019 BILATERAL SCREENING DIGITAL MAMMOGRAM WITH 3D TOMOSYNTHESIS AND CAD DATE: 12/06/2019 2:56 PM HISTORY: Routine screening. TECHNIQUE: Full-field digital craniocaudal and mediolateral oblique projections of both breasts were obtained. Low-dose full-field digital breast tomosynthesis examination was performed with 2D and 3D acquisitions. Examination is read in conjunction with computer aided detection. COMPARISON: None currently available. The patient indicates her prior films were obtained in 2019 at [facility]. She has signed a release form for retrieval of these images. BREAST COMPOSITION: Heterogeneously dense, which limits the sensitivity of mammography. FINDINGS: This study is incomplete due to lack of prior films for comparison. Prior films have been requested and once received, an addendum will be made to this report. CAD is utilized. IMPRESSION: This study is incomplete. Outside films are needed to assess stability of the parenchymal pattern. Once received, an addendum to this report will be made. OVERALL FINAL ASSESSMENT: BI-RADS CATEGORY 0 - Incomplete: Needs prior mammograms for comparison. DICTATION LOCATION: [facility] us Loretta Gómez MD MAMMO ORDERABLE S Edited Result - Final * CERV/VAG CYTO AGE BASED SCREEN PAP (11/04/2019 11:50 AM SUPERVISOR RIPRAP PLACING) COMMENT (PAP): SEE COMMENT 0 8:38 AM SUPERVISOR RIPRAP PLACING [facility] Comment: This order for age-based cervical cancer and STI screening follows ACOG guidelines(PB 168, 140, CYI479). See individual assays for performing site location. CLINICAL INFORMATION SCREENING 11/06/2019 8:38 AM SUPERVISOR RIPRAP PLACING [facility] LAST MENSTRUAL PERIOD INFORMATION NOT PROVIDED 11/06/2019 8:38 AM SUPERVISOR RIPRAP PLACING [facility] PREV PAP: INFORMATION NOT PROVIDED 11/06/2019 8:38 AM SUPERVISOR RIPRAP PLACING [facility] PREV BX: INFORMATION NOT PROVIDED 11/06/2019 8:38 AM SUPERVISOR RIPRAP PLACING [facility] SOURCE Endocervix 11/06/2019 8:38 AM SUPERVISOR RIPRAP PLACING [facility] ADEQUACY: SATISFACTORY FOR EVALUATION 11/06/2019 8:38 AM SUPERVISOR RIPRAP PLACING [facility] PAP INTERP SEE COMMENT 11/06/2019 8:38 AM SUPERVISOR RIPRAP PLACING [facility] Comment: Negative for intraepithelial lesion or malignancy. Atrophic pattern; predominantly parabasal cells COMMENT This Pap test has been evaluated with computer assisted technology. 11/06/2019 8:38 AM SUPERVISOR RIPRAP PLACING [facility] APPLIANCE MECHANIC: SEE COMMENT 2019 8:38 AM SUPERVISOR RIPRAP PLACING [facility] Comment: MEF, CT(ASCP) CT screening location: [place] [address] [place] [address] EXPLANATORY NOTE SEE COMMENT 020 8:38 AM SUPERVISOR RIPRAP PLACING [facility] Comment: EXPLANATORY NOTE: The Pap is a screening test for cervical cancer. It is not a diagnostic test and is subject to false negative and false positive results. It is most reliable when a satisfactory sample, regularly obtained, is submitted with relevant clinical findings and history, and when the Pap result is evaluated along with historic and current clinical information. HPV E6/E7 Not Detected Not Detected 11/06/2019 8:38 AM SUPERVISOR RIPRAP PLACING [facility] Comment: This test was performed using the APTIMA HPV Assay ([employer] This assay detects E6/E7 viral messenger RNA (mRNA) from 14 high-risk HPV types (16,18,31,33,35,39,45,51,52,56,58,59,66,68). The analytical performance characteristics of this assay have been determined by [facility]. The modifications have not been cleared or approved by the FDA. This assay has been validated pursuant to the CLIA regulations and is used for clinical purposes. Genital SWAB OF ENDOCERVIX / Unknown Collection / Unknown 11/04/2019 11:50 AM SUPERVISOR RIPRAP PLACING 11/04/2019 2:44 PM SUPERVISOR [employer]RAP [employer]ACING Narrative [facility] - 11/06/2019 8:38 AM SUPERVISOR [employer]RAP [employer]ACING Performing Organization Information: Site ID: [id number] [facility]: [facility] Address: [address] [place] [address] Director: Jason Ojeda D.O., MPH Site ID: [place] [facility]: [facility] Address: [address] [place] [address] Director: Jose Hinojosa Loretta Gómez MD PATHOLOGY/CYTOL OGY ORDERABLES Final Result [facility] [phone] from Last 3 Months or Most Recently Relevant to Health Maintenance Insurance BCBS BLUE ACCESS/TRUE BLUE PPO RX [facility] [employer] Advance Directives For more information, please contact: [phone] * Full Code (Latest Code Status on File) Date Activated Date Inactivated Comments 07/29/2019 6:29 AM 07/29/2019 2:04 PM Care Teams Suction Plate Roller Hand Relationship Specialty Start Date End Date Mikhail Meza MD [address] [place] [address] PCP - General Internal Medicine 07/01/17
--- OUTSIDE RECORDS SUMMARY | 2025-09-09 12:04 | XMS_ITS | Clinical Summary ---
Author Organization [facility] Address [address] [place] [address] Care Team Providers Care Landman Name Role Phone Mikhail Meza MD Primary Care Provider [phone] Source Comments [facility],non-owned Affiliates and Associated Physician Practices is amultiple site organization consisting of ambulatory clinics and hospital sitesin [place], [place], [place] and [place]. This disclosure is being madepursuant to the Care Everywhere program and may not contain all information available regarding this patient. Last updated 18.[facility] Allergies Active Allergy Reactions Criticality Noted Date Comments Codeine Rash 02/21/2010 fever Medications * Be aware that medications may not be up to date on this document. Alwaysverify current medications with the patient. acetaminophen (TYLENOL) 325 MG tablet Take 2 Tabs by mouth every 4 hours as needed for Fever, Pain and Headache. Maximum allowable Acetaminophen amount = 4 Grams / 24 hours. 0 0 04/11/20 10 Active montelukast (SINGULAIR) 10 MG tablet Take 10 mg by mouth once daily 3 07/01/20 16 Active phentermine (ADIPEX-P) 37.5 MG tablet Take 18.75 mg by mouth once daily 2 07/01/20 16 Active predniSONE (DELTASONE) 20 MG tablet TAKE 3 TABS DAILY FOR 3 DAYS, 2 TABS DAILY FOR 3 DAYS, THEN 1 TAB DAILY FOR 3 DAYS 0 07/05/20 16 Active topiramate (TOPAMAX) 50 MG tablet Take 150 mg by mouth at bedtime 1 04/15/20 16 Active fluticasone-salmet raj hfa (ADVAIR HFA) 115-21 MCG/ACT Inhale 2 puffs by mouth 2 times daily Active docusate (COLACE) 100 capsule - self administration Take 1 capsule by mouth nightly as needed for Constipation Active Active Problems Problem Noted Date Diagnosed Date Ovarian cyst 07/11/2016 Overview (07/11/2016): Last U/S check was in 10/2014, 0.9cm anechoic cyst Endometrial polyp 07/11/2016 Overview (07/11/2016): 12/2014- removed with hysteroscopy D&C Low back pain 02/21/2010 Family History Medical History Relation Name Comments Cancer Brother 2 brain Seizures Brother 3 Rashes/Skin Problems Father Cancer Maternal Grandmother unknown Hypertension Maternal Grandmother Stroke Mother mild Colon Cancer after age 50 or unknown Paternal Grandmot her Relation Name Status Comments Brother 1 Brain tumor Brother 2 Brother 3 Father Alive Maternal Grandmother Mother Alive Paternal Grandmother Sister 1 Alive Sister 2 Alive Social History Tobacco Use Types Packs/Day Years Used Date Smoking Tobacco: Never Smokeless Tobacco: Never Alcohol Use Standard Drinks/Week Comments Yes 0 (1 standard drink = 0.6 oz pur e alcohol) Social Comments No Sex and Gender Information Value Date Recorded Sex Assigned at Not on file Legal Sex Female 8:45 AM COMPACT ASSEMBLER Gender Identity Not on file Sexual Orientation Not on file Occupation Industry Job Start Date Job End Date Unemployed Not on file Not on file Not on file Last Filed Vital Signs Vital Sign Reading Time Taken Comments Blood Pressure 118/80 10/01/2018 1:22 PM COMPACT ASSEMBLER Pulse 97 04/12/2010 7:26 AM CDT Temperature 37 C (98.6 F) 04/12/2010 7:26 AM CDT Respiratory Rate 18 04/12/2010 7:26 AM CDT Oxygen Saturation 96% 04/12/2010 7:26 AM CDT Inhaled Oxygen Concentration - - Weight 81.2 kg (179 lb) 10/01/2018 1:22 PM COMPACT ASSEMBLER Height 168.9 cm (5' 6.5) 10/01/2018 1:22 PM COMPACT ASSEMBLER Body Mass Index 28.46 10/01/2018 1:22 PM COMPACT ASSEMBLER Plan of Treatment Health Maintenance Due Date Last Done Comments JUDITH (AGES 45-75) - COLON CA SCREENING 1964 COLON MONITORING 1964 COLONOSCOPY - COLON CA SCREENING 1964 CT COLONOGRAPHY - COLON CA SCREENING 1964 Colorectal Cancer Screening 1964 FIT - COLON CA SCREENING 1964 FLEX SIG - COLON CA SCREENING 1964 LIPID TESTING 1964 HIV SCREENING 1979 HEPATITIS C SCREENING 08/03/1982 DTAP/TDAP/TD VACCINES (1 - Tdap) 1983 PNEUMOCOCCAL VACCINE 50+ (1 of 1 - PCV) 2014 ZOSTER VACCINE (1 of 2) 2014 SCREENING FOR DIABETES 07/17/2017 MAMMOGRAM 11/09/2019 11/09/2018 (Done Outside Per Report), 08/26/2014 PAP with HPV 10/01/2023 10/01/2018, 07/17/2017, 07/11/2016 DEPRESSION SCREENING 11/03/2024 COVID-19 VACCINE (1 - 2023-2 5 season) 2025 INFLUENZA VACCINE (#1) 2025 Respiratory Syncytial Virus (RSV) Vaccine Pt: or over 60 yrs (1 - 1-dose 75+ series) 2039 HEPATITIS B VACCINE Aged Out No longe r eligible based on patient's age to complete this topic HIB VACCINE Aged Out No longer eligi ble based on patient's age to complete this topic HPV VACCINE Aged Out No longer eligi ble based on patient's age to complete this topic MENINGOCOCCAL (Group B) VACCINE SHARED DECISION-MAKING Aged Out No longer eligible based on patient's age to complete this topic MENINGOCOCCAL GROUPS A/C/Y/W VACCINE Aged Out No longer eligible based on patient's age to complete this topic Procedures Procedure Name Priority Date/Time Associated Diagnosis Comments PAP IG LB + HPV HR Routine 10/01/2018 2: 08 PM COMPACT ASSEMBLER Well woman exam MAMMOGRAPHY ORDER Routine 08/26/2014 from Last 3 Months or Most Recently Relevant to Health Maintenance Results * PAP IG LB + HPV HR (10/01/2018 2:08 PM COMPACT ASSEMBLER) Diagnosis [facility] ACCOUNT BILL Comment: NEGATIVE FOR INTRAEPITHELIAL LESION AND MALIGNANCY. PREDOMINANCE OF COCCOBACILLI CONSISTENT WITH SHIFT IN VAGINAL KING IS PRESENT. Specimen Adequacy [facility] ACCOUNT BILL Comment: Satisfactory for evaluation. Endocervical and/or squamous metaplastic cells (endocervical component) are present. Areas of partially obscuring inflammtory exudate are present. Clinician Provided ICD10 [facility] ACCOUNT BILL Comment: Z01.419 Z12.11 N94.10 Performed by [facility] ACCOUNT BILL Comment:Graciela Young, Cyto technologist (ASCP) Comment . [facility] ACCOUNT BILL Note [facility] ACCOUNT BILL Comment: The Pap smear is a screening test designed to aid in the detection of premalignant and malignant conditions of the uterine cervix. It is not a diagnostic procedure and should not be used as the sole means of detecting cervical cancer. Both false-positive and false-negative reports do occur. . IGLBP CPT Code Automation [facility] ACCOUNT BILL Comment: This liquid based ThinPrep(R) pap test was screened with the use of an image guided system. Human papillomavirus High Risk Negative Negative [facility] ACCOUNT BILL Comment: This high-risk HPV test detects thirteen high-risk types (16/18/31/33/35/39/45/51/52/56/58/59/68) without differentiation. . Pathology/Cytolog y PART OF UTERINE CERVIX / Unknown 10/01/2018 2:08 PM COMPACT ASSEMBLER 10/01/2018 Narrative [facility] ACCOUNT BILL - 10/06/2018 6:13 AM COMPACT ASSEMBLER No. of containers..01 ThinPrep Vial Resulting Agency Comment [facility] [place] [phone] us Cesar Paul MD LAB - PATHOLOGY/CYTOLOGY OR DERABLES Final Result [facility] ACCOUNT BILL [address] [place] [address] * MAMMOGRAPHY ORDER (08/26/2014) Anatomical Region Laterality Modality Other us Cesar Paul MD MAMMO ORDERABLES Final Resu lt from Last 3 Months or Most Recently Relevant to Health Maintenance Insurance [employer] Advance Directives * Full Code (Latest Code Status on File) Date Activated Date Inactivated Comments 04/10/2010 9:55 AM 04/12/2010 8:16 PM Care Teams Landman Relationship Specialty Start Date End Date Mikhail Meza MD [address] [place] [address] PCP - General 04/23/10
== END 2025-09-09 11:25 | disposition home or self-care (01) ==
PROVIDERS: PCP Internal Medicine; Visit Provider Internal Medicine
DX: M25.551 Pain in right hip (principal); M41.86 Other forms of scoliosis, lumbar region; M43.06 Spondylolysis, lumbar region; M16.11 Unilateral primary osteoarthritis, right hip
CPT/HCPCS: 72100; 73502